=== PATIENT | female | born 1960 | race Caucasian/White ===

== ENCOUNTER 2021-12-13 17:29 | Emergency (ER) | payer OTHER ==
[~2021-12-13] VITALS: Ht 165.1 cm; Wt 77.0 kg
[2021-12-13] MEDS ORDERED: ONDANSETRON HCL 4MG/2ML INJ IV STA (18:52)
[2021-12-13] MEDS ORDERED: INSULIN REGULAR (HUMULIN R) 300UNITS/3ML VIAL IV ONE (19:00)
[2021-12-13] MEDS ORDERED: SODIUM CHLORIDE 0.9% 1,000 ML IV ONE ×2 (19:00→20:00)
[2021-12-13 19:13] LABS: BASOPHILS % 0.5 % (0.0-2.0); EOSINOPHILS % 4.9 % (0.0-5.0); HEMATOCRIT. 29.4 % (36.0-48.0); HEMOGLOBIN. 9.6 g/dL (12.0-16.0); LYMPHOCYTES % 22.3 % (20.0-50.0); MEAN CORPUSCULAR HEMOGLOBIN 29.4 pg (28.0-32.0); MEAN CORPUSCULAR VOLUME 89.8 fL (81.0-99.0); MEAN PLATELET VOLUME 7.6 fl (7.4-10.4); MONOCYTES % 9.8 % (2.0-8.0); NEUTROPHILS % 62.5 % (40.0-76.0); PLATELET 458 x1000/uL (130-400); RED BLOOD CELL COUNT 3.27 mill/uL (4.2-5.4); RED CELL DISTRIBUTION WIDTH 13.2 % (11.6-14.6)
[2021-12-13 19:21] LABS: CHLORIDE 104 mEq/L (98-107)
[2021-12-13 19:30] LABS: BETA HYDROXYBUTYRATE 0.1 mMol/L (0.0-0.3)
[2021-12-13] MEDS ORDERED: LABETALOL HCL VIAL 20 MG/4 ML VIAL IV NR (20:00)
[2021-12-13] MEDS ORDERED: INSULIN REGULAR (HUMULIN R) 300UNITS/3ML VIAL IV NR (20:30)
[2021-12-13] MEDS ORDERED: LABETALOL 5MG/ML SYR 20 MG/4 ML SYRINGE IV NR (20:48)
[2021-12-14 00:40] VITALS: BP 145/81
== END 2021-12-14 00:46 | disposition home or self-care (01) ==
LOC: ER 17:29 → CANBEDREQ 12-14 04:41
DX: E11.65 Type 2 diabetes mellitus with hyperglycemia (principal); D64.9 Anemia, unspecified; I10 Essential (primary) hypertension; E78.00 Pure hypercholesterolemia, unspecified
CPT/HCPCS: 36415; 71045; 80053; 82010; 82962; 83880; 84484; 85025; 93005; 96361; 96374; 96375; 99285; J1815; J2405; J3490; J7030